=== PATIENT | female | born 1995 | race African-American/Black ===

== ENCOUNTER 2018-03-23 22:05 | Emergency (ER) | payer OTHER ==
[~2018-03-23] VITALS: Ht 165.1 cm; Wt 61.2 kg
[2018-03-23] MEDS ORDERED: DEPO-PROVE150 MG/11 IM (22:41)
--- NOTE | 2018-03-23 23:33 | RADIOLOGY REPORT ---
EXAMINATION: XR TIBIA AND FIBULA, RIGHT CLINICAL INFORMATION: Pain COMPARISON: None TECHNIQUE: AP and lateral views of the right tibia and fibula were obtained. FINDINGS: Osseous alignment is anatomic. No evidence of acute fracture. Small round calcification anterior to the mid tibia may reflect a phlebolith. No significant focal soft tissue swelling. IMPRESSION: No acute findings identified.
--- NOTE | 2018-03-24 00:09 | ED UPPER/LOWER EXTREMITY COMPL ---
History of Present Illness General Chief Complaint: Lower Extremity Problems Stated Complaint: HIT LEG, RECENTLY ON COUMADIN Source: patient, old records Exam Limitations: no limitations Vital Signs & Intake/Output Vital Signs & Intake/Output Vital Signs Date Time Temp Pulse Resp B/P B/P Pulse O2 O2 Flow FiO2 Mean Ox Delivery Rate 03/23 2240 80 20 118/81 100 ED Intake and Output 03/24 0000 03/23 1200 Intake Total Output Total Balance Patient 135 lb Weight Allergies Coded Allergies: No Known Allergies (03/23/18) Reconcile Medications Medroxyprogesterone Acetate (Depo-Provera) 150 MG/ML SYRINGE 1 ML IM Q3M BCP (Reported) Triage Note: PER PT HIT RT THIGH ON BED FRAME, PT STOPPED COUMADIN 1 WEEK AGO ON September S/P PE FROM PT ON DEPO [facility] DENIES CHANCE OF Triage Nurses Notes Reviewed? yes : No Patient currently breastfeeds: No HPI: Patient presents with pain to the lower aspect of her right knee ever since she painted onto a bed frame earlier today. Patient states when it first happened the pain radiates down to her foot but now the pain is just in her right upper cyr area. The pain is constant and increases with ambulation. The pain is aching and throbbing in nature. She rates the pain as 8 out of 10. There is no weakness or numbness. Patient was on Coumadin after pulmonary emboli but stopped one week ago. Past History Travel History Traveled to [place] past 21 day No Medical History Any Pertinent Medical History? see below for history Neurological: NONE EENT: NONE Cardiovascular: PE Respiratory: NONE Gastrointestinal: NONE Hepatic: NONE Renal: NONE Musculoskeletal: NONE Psychiatric: NONE Endocrine: NONE Surgical History Surgical History: non-contributory Psychosocial History What is your primary language Croatian Tobacco Use: Never used ETOH Use: denies use Illicit Drug Use: denies illicit drug use Family History Hx Contributory? No Review of Systems Review of Systems Constitutional: Reports: no symptoms. Respiratory: Reports: no symptoms. Cardiovascular: Reports: no symptoms. Gastrointestinal/Abdominal: Reports: no symptoms. Musculoskeletal: Reports: see HPI. Neurological/Psychological: Reports: no symptoms. Hematologic/Endocrine: Reports: no symptoms. Immunological: Reports: no symptoms. Physical Exam Physical Exam General Appearance: well developed/nourished, alert, awake Eyes: Bilateral: PERRL, EOMI. Neck: normal inspection, supple Cardiovascular/Respiratory: normal breath sounds, normal peripheral pulses, regular rate/rhythm Knee Right: tenderness, pain, soft tissue tenderness Knee Ligaments Right: STABLE Neurologic/Tendon: normal sensation, normal motor functions, normal tendon functions Progress Differential Diagnosis: contusion, fracture, sprain Plan of Care: Orders Procedure Date/time Status Durable Medical Equipment 03/24 0013 Active Diagnostic Imaging: Viewed by Me: Radiology Read. Discussed w/RAD: Radiology Read. Radiology Impression: PATIENT: LEYLA MEDEIROS PRESENT AGE: 22 PATIENT ACCOUNT NO: [id number] : 95 LOCATION: [facility] ORDERING PHYSICIAN: Gildardo Guidry MD SERVICE DATE: 03/23/18 EXAM TYPE: RAD - [id number], RIGHT EXAMINATION: XR TIBIA AND FIBULA, RIGHT CLINICAL INFORMATION: Pain COMPARISON: None TECHNIQUE: AP and lateral views of the right tibia and fibula were obtained. FINDINGS: Osseous alignment is anatomic. No evidence of acute fracture. Small round calcification anterior to the mid tibia may reflect a phlebolith. No significant focal soft tissue swelling. IMPRESSION: No acute findings identified. DICTATED BY: Armando Sharma MD DATE/TIME DICTATED :03/23/182327 CYTOTECHNOLOGIST/CYTOLOGY SUPERVISOR:FRANCOISE DATE/TIME TRANSCRIBED:03/23/182327 CONFIDENTIAL, DO NOT COPY WITHOUT APPROPRIATE AUTHORIZATION. < Electronically signed in Other Vendor System> SIGNED BY: Armando Sharma MD 03/23/181 Departure Departure Disposition: HOME OR SELF CARE Condition: Stable Clinical Impression Primary Impression: Contusion of right knee Referrals: Tejal KO,Miguel Maxwell (PCP/Family) Additional Instructions: WEAR IMMOBILIZER FOR COMFORT FOLLOW UP WITH DR. TEJAL MOLNIA IF SYMPTOMS WORSEN OR FOR ANY CONCERNS Departure Forms: Customer Survey General Discharge Information Procedures Splinting Location: RIGHT KNEE Manual Alignment Performed: No Pre-Made Type: knee imobilizer Splint: KNEE Splint Applied By: splint applied by other Pre-Proc Neuro Vasc Exam: normal Post-Proc Neuro Vasc Exam: normal
[2018-03-24 00:23] VITALS: BP 116/78
== END 2018-03-24 00:24 ==
LOC: ERH 22:05
DX: S80.01XA Contusion of right knee, initial encounter (principal); W22.03XA Walked into furniture, initial encounter
CPT/HCPCS: 73590-RT